=== PATIENT | female | born 1965 | race Caucasian/White ===

== ENCOUNTER → 2017-07-30 13:48 | Outpatient (CLI) | payer OTHER, SELFPAY ==
[2017-07-30 17:42] LABS: Chlamydia Trachomatis by PCR Negative (Negative); Neisserai gonorrhoeae by PCR Negative (Negative); Probe Check PASS; Sample Adequacy Control PASS; Specimen Processing Control PASS
== END ==
PROVIDERS: Family Provider Family Medicine; PCP Family Medicine; Visit Provider Obstetrics & Gynecology
DX: N39.0 Urinary tract infection, site not specified (principal); Z11.3 Encounter for screening for infections with a predominantly sexual mode of transmission
CPT/HCPCS: 87086; 87088; 87186; 87491; 87591

== ENCOUNTER 2017-08-19 12:05 | Observation (INO) | payer OTHER, SELFPAY ==
[2017-08-13 10:48] LABS: Hematocrit 41.5 % (37-47); Hemoglobin 14.1 g/dl (12.0-15.0); Mean Corpuscular Hgb 33.9 pg (27.0-32.0); Mean Corpuscular Volume 99.8 fL (81-99); Mean Platelet Vol. 10.9 fl (6.2-12.0); Platelet Count 173 K/mm3 (150-450); RBC Distribution Width CV 12.6 % (11.6-14.6); RBC Distribution Width SD 45.1 fl (35.1-43.9); Red Blood Count 4.16 M/mm3 (4.2-5.4); White Blood Count 6.5 K/mm3 (4.4-11.0)
[2017-08-13 10:49] LABS: Scan Indicated on CBC? Y/N NO
[2017-08-13 10:55] LABS: International Normalized Ratio 0.9; Prothrombin Time (Protime)PT. 11.4 SECONDS (11.7-14.9)
[2017-08-13 10:56] LABS: Partial Thromboplast Time 29.1 Seconds (24.1-36.2)
[2017-08-13 11:23] LABS: Pregnancy, Serum, hCG Quali. NEGATIVE Negative (0-9 Nonpreg)
[2017-08-19] VITALS (12 sets, daily range): BP systolic 112–144; BP diastolic 60–89; PULSE 67–92; RESP 16–18; TEMP 36.1–37.1; O2SAT 95–99; BMI 26.0; BMI 26.1
--- NOTE | 2017-08-19 | HYST_PTH ---
PATIENT: CEDRIC PEREZ LOC: MS3 U#:[id number] AGE/SX: 52/F ROOM: [facility] [place] RE08/19/[address]: Dr. Dc Kwon MD : [id number] BED: 1 DIS: 08/20/2017 SPEC #: [id number] RECD: 08/19/17 13:42 STATUS: LAMONT REAime #: [id number] JUAN: 08/19/17 00:[address]: Dc Kwon DEPT: SURGICAL PATHOLOGY RECD BY: Sesar Stewart ENTERED: 08/19/17 13:43 SP TYPE: HYSTERECT OTHR DR: Dr. David Connolly MD Tissues: Uterus, NOS Procedures: Surgery Specimen Level V HEADER OPERATION: Laparoscopic assisted vaginal hysterectomy, bilateral salpingectomy PRE-OP DIAGNOSIS: Menorrhagia with dysmenorrhea TISSUE SUBMITTED: Uterus, bilateral fallopian tubes MICROSCOPIC DIAGNOSIS Uterus, bilateral fallopian tubes and ovaries, vaginal hysterectomy and bilateral salpingo-oophorectomy: Cervix ? mild chronic inflammation and squamous metaplasia. Endometrium ? proliferative endometrium. Myometrium ? intramural leiomyoma. - Focal adenomyosis. See comment. Bilateral fallopian tubes - no pathologic diagnosis. Right ovary ? physiologic follicular cyst. Left ovary - no pathologic diagnosis. SJ:rg 08/20/17 COMMENT One of the intramural nodule is consistent with adenomyoma. MICROSCOPIC DESCRIPTION Slides are reviewed. GROSS DESCRIPTION Received in fixative is one container labeled with the patient's name and designated uterus. The specimen consists of a uterus with attached cervix and attached right and left fallopian tubes and ovaries. The uterus with cervix measures 8.5 x 6 x 4.5 cm and weighs 100 gm. The ectocervix is unremarkable. The cervical os is [place] in contour. The endocervical canal measures 3 cm in length and is grossly unremarkable. The elongated endometrial cavity measures 4 x 2 cm. The endometrium measures 0.1 cm in thickness. The endometrial cavity contains chocolate brown material. The myometrium measures 1.8 cm in thickness and contains two rubbery nodules ranging in size from 1.5 to 2.2 cm. The nodules and cut surfaces display a whorled appearance without areas of cyst formation or necrosis. The right ovary is pink-harrell and has a crinkled external surface and measures 3.4 x 2 x 1 cm. Serial sections reveal a blood filled cyst measuring 1.4 cm. The adjacent fallopian tube measures 3 cm in length and 0.5 cm in average diameter. No tubo-ovarian adhesions are seen. The left ovary is similar in appearance to the right ovary and measures 3.6 x 2 x 1.3 cm. Serial sections do not reveal mass lesions. The left fallopian tube is similar in appearance to the right tube and measures 3 x 0.5 cm. No tubo-ovarian adhesions are seen. Rescue Worker sections are submitted as follows: 1 - anterior cervix, 2 - posterior cervix, 3 & 4 - anterior uterine wall, 5 & 6 - posterior uterine wall, 7 ? myometrial masses, 8 ? right fallopian tube and ovary, 9 ? left fallopian tube and ovary. / AM:carlos 08/19/17 TC:5 CPT: 76471
[2017-08-19 07:05] LABS: Internal QC Validated? YES +Cl - CLEAR BKGD; Pregnancy, Urine Negative Negative
[2017-08-19] MEDS: Vasopressin 20 UNITS/ML Vial (08:45)
--- NOTE | 2017-08-19 09:16 | OP.PCM_ITS ---
Report of Operation Date of Procedure: 08/19/17 Pre-Operative Diagnosis: Menorrhagia, dysmenorrhea Post-Operative Diagnosis: Same Surgery/Procedure Performed:: LAVH/BSO Description of Surgical Findings:: Uterus globally enlarged. Both fallopian tubes had been previous ligated. Ovaries normal bilaterally. Some scarring present between bladder and lower uterine segment and anterior cervix. Normal appearing liver and stomach. cash surrender calculator: Stephanie Joel Type of Anesthesia:: General Anesthesiologist: Raul Goodwin Specimen's removed: Uterus, cervix, right and left ovaries and fallopian tubes Drains: champion Estimated Blood Loss (mL): 100cc Fluids Replaced: 1500cc Description of Procedure: Ayla was taken to the OR with IV running. She was given two grams of Cefotetan IV as surgical prophylaxis. SCDs were in place throughout the case and into recovery. General anesthesia was introduced without complication. She was then prepped and draped in the dorsal lithotomy position. A uterine manipulator was placed. A champion catheter was placed. Attention was then directed to the abdomen where a 5 mm verical incision was made in the lower base of the umbilicus. The underlying subcutaneous tissue was dissected down to the level of fascia using blunt dissection with a Phoebe clamp. The abdominal wall was then elevated and a Vereass needle placed in the the abdominal cavity. The abdomen was then inflated to 12 Torr with CO2 gas. The Veress needle was removed and replaced with a 5mm trocar and sleave. A survey of the abdomen and pelvis was performed with findings as noted above. Two lateral side ports were then placed lateral to the inferior epigastric vessels about 3 cm below the level of the umbilicus. Hemostasis was excellent after port site placement. Attention was first directed to the left side of the pelvis where the ovary was grasped and elevated. The left infindibulopelvidc ligament was identified and cauterized then cut with the Ligasure device. The Left mesoovarian tissue was then dissected close to ovary from the ovary to the cornua of the uterus. The left broad ligament was then dissected from the cornua to the cervicouterine junction close the the uterus. The anterior and posterior leaves were then . The anterior leave was bluntly dissected off the anterior surface of the cervix. The cervicovesico peritoneum was then cut from left to right thus creating a bladder flap. The left uterine artery was then clamped, cauterized and cut. The left paracervical tissue was then dissected close to the cervix down to the level of the uterosacral ligaments. In a similar fashion the right ovary, broad ligament were dissected down tot he cervicouterine junction. Again the right uterine artery was identified, cauterized and cut. The right paracervical tissue was then dissected close to the cervix the the level of the right suterosacral ligament. Attention was then directed to the vagina where a weighted speculum was placed. The uterine manipulator was removed and the cervix grasped with two single toothed tenacula to be used for traction. The cervicovaginal epithelium was then injected superficially with a dilute Pitressin solution. Using the Bovie cautery the cervicovaginal epithelium was dissected in a circumfrential fashion. The vaginal epithelium was then pushed superiorly. The vesicovaginal peritoneum was then identified and entered sharply. The posterior rectovaginal peritoneum was then identified and entered sharply. A long weighted speculum was placed through the posterior defect. The uterosacral ligaments were then grasped with Yolande clamps, cut, and suture ligated. These ties were held for incorporation into the lateral vaginal cuff angles. The remaining paracervical tissue was clamped close to the cervix on each side, cut and suture ligated. With all attachments of the specimen removed the specimen was removed en bulk. The vaginal cuff angles were then suture ligated with 0-Vicryl sutures and incorporated into these sutures were the previously held uterosacral ligament ties. The vagina was then closed with a series of figure of eight sutures of 0- vicryl. Attention was then directed back to the abdomen which was reinflated. A survey of the pelvic pedicle and vaginal cuff sites found them to be hemostatic. The port sites were then removed and gas evacuated from the abdomen. The skin incisions were closed with 4-0 Monocryl sutures. The incision sites were injected with 0.25% Marcaine. Sponge, lap, and needle counts were correct. SHe was reversed from anesthesia without complication and taken to the recovery room in stable condition. Grafts/Implants Used: none - Complications none - Admit VTE Documentation VTE Present on Admission: No VTE Mechan Device Prophylaxis: SCD's VTE Pharm Prophylaxis ordered?: Yes
[2017-08-19] MEDS: Bupivacaine 0.25% 30 ML Vial (10:40)
[2017-08-19] MEDS: Ketorolac 30 MG/ML Syringe IV ×2 (14:17→19:46)
[2017-08-19] MEDS: Ondansetron 4 MG/2 ML Vial IV (14:17)
[2017-08-19] MEDS: Estrogens,Conj. 1.25 MG Tablet PO (14:18)
[2017-08-19] MEDS: Lactated Ringers 1,000 ML 125 ML IV (14:19)
[2017-08-19] MEDS: Acetaminophen 500 MG Tablet 1000 MG PO ×2 (15:00→21:51)
[2017-08-19] MEDS: Enoxaparin 40 MG/0.4 ML Syringe SC (16:52)
[2017-08-19] MEDS: Cefazolin 1 GM/50 ML BAG IV (16:52)
[2017-08-19] MEDS: HYDROmorphone 1 MG/ML Syringe IV (17:01)
[2017-08-19] MEDS: oxyCODONE 5 MG Tablet PO (21:52)
[2017-08-20] MEDS: Ketorolac 30 MG/ML Syringe IV ×2 (00:56→06:33)
[2017-08-20] MEDS: Cefazolin 1 GM/50 ML BAG IV (00:56)
[2017-08-20 01:52] VITALS: BP 111/59; PULSE 79; RESP 16; TEMP 36.9; O2SAT 95
[2017-08-20] MEDS: oxyCODONE 5 MG Tablet PO ×2 (02:06→08:05)
[2017-08-20] MEDS: Lactated Ringers 1,000 ML 125 ML IV (02:08)
[2017-08-20] MEDS: Acetaminophen 500 MG Tablet 1000 MG PO (05:21)
[2017-08-20 05:55] LABS: Hematocrit 33.5 % (37-47); Hemoglobin 11.1 g/dl (12.0-15.0); Mean Corp Hgb Conc 33.1 g/gl (32-36); Mean Corpuscular Hgb 33.4 pg (27.0-32.0); Mean Corpuscular Volume 100.9 fL (81-99); Mean Platelet Vol. 11.2 fl (6.2-12.0); Platelet Count 163 K/mm3 (150-450); RBC Distribution Width CV 12.7 % (11.6-14.6); RBC Distribution Width SD 45.9 fl (35.1-43.9); Red Blood Count 3.32 M/mm3 (4.2-5.4); White Blood Count 8.5 K/mm3 (4.4-11.0)
[2017-08-20 06:08] LABS: Scan Indicated on CBC? Y/N NO
--- NOTE | 2017-08-20 06:43 | DCINST_ITS ---
Discharge Diet: No Restrictions Discharge Activity: Return to Normal Activity, May Not Drive, May not drive while taking narcotic pain medications., May Shower Return to work on:: 09/28/17 May shower in (days): 0 May resume sexual activity in: 6 weeks Call your doctor if your incision/area has: Sudden Increased Bleeding, Increased Pain/ Swelling, Increased Redness, Foul Smelling Discharge, Swelling at the incision site Call your doctor if you observe: Fever of 101 or Higher, Inability to urinate, Inability to have a bowel movement, Using more than one pad per hour, Chest pain , Calf discomfort, Uncontrolled pain Remove Dressing in (days):: 1 Cleanse incision/area with: Soap & Water Allergies/Adverse Reactions: Allergies No Known Allergies Allergy (Verified 08/12/17 10:15) Medications to take at Discharge Bupropion HCl [Bupropion Xl] 150 mg PO DAILY 03/11/17 Trazodone HCl 100 mg PO DAILY 03/11/17 Cholecalciferol (Vitamin D3) [Vitamin D3] 2,000 unit PO QHS 08/12/17 Valerian Root 1,500 mg PO QHS 08/12/17 Estrogens, Conjugated [Premarin] 1.25 mg PO DAILY #30 tab 08/20/17 Ibuprofen [Motrin] 800 mg PO TID PRN PRN #30 tab 08/20/17 Oxycodone [Oxyir] 5 - 10 mg PO Q4H PRN PRN 7 Days #28 tab 08/20/17 The following prescriptions were given: Oxycodone [Oxyir] 5 - 10 mg PO Q4H PRN PRN 7 Days #28 tab PRN Reason: Mod-Severe Pain (4-10/10) Estrogens, Conjugated [Premarin] 1.25 mg PO DAILY #30 tab Ibuprofen [Motrin] 800 mg PO TID PRN PRN #30 tab PRN Reason: pain or cramping Primary Care Physician: David Connolly [Primary Care Provider] - Please Follow Up With: Dc Kwon MD When: one week Proposed Discharge Date: 08/20/17
--- NOTE | 2017-08-20 07:02 | PCM.PN.OB ---
Subjective: Pain reasonably controlled. Tolerating PO. No N/V. Thompson just removed. Objective: Afeb VSS. urine output adequate. Hgb appropriate po day 1. - Physical Exam General: Alert, Oriented x3, Cooperative, No apparent distress Lungs: Clear to auscultation, Normal air movement Cardiovascular: Regular rate, Regular Rhythm Abdomen: Soft, Non Tender, Non-Distended, - - Incision dressings dry no erythema Extremities: No edema, No Calf Tenderness Skin: No rashes Neurological: Neuro grossly intact Psych/Mental Status: Normal Affect Vital Signs Temp Pulse Resp BP Pulse Ox 98.4 F 79 16 111/59 L 95 08/20/17 01:52 08/20/17 01:52 08/20/17 01:52 08/20/17 01:52 08/20/17 01:52 Oxygen Flow Rate 2 Oxygen Delivery Method Room Air Weight: 152 lb 1.903 oz Body Mass Index (BMI) 26.1 Intake and Output for Last 24 Hours 08/18/18 08/19/17 08/20/17 23:59 23:59 23:59 Intake Total 2968 / 2968 1033 / 1033 Output Total 840 / 840 700 / 700 Balance 2128 / 2128 333 / 333 Laboratory Tests Past 24 Hrs 08/19/17 08/20/17 06:45 05:08 WBC 8.5 RBC 3.32 L Hgb 11.1 L Hct 33.5 L MCV 100.9 H MCH 33.4 H MCHC 33.1 RDW 12.7 RDW Differential 45.9 H Plt Count 163 MPV 11.2 Urine Test Negative Assessment/Plan Doing well on POD#1. Cleared for discharge home today once voids. Home going instructions and warnings given.
--- NOTE | 2017-08-20 07:07 | DS.PCM_ITS ---
Discharge Date and Diagnosis Date of Admission: 08/19/17 Date of Discharge: 08/20/17 - Primary Discharge Diagnosis S/P LAVH/BSO - Secondary Discharge Diagnosis Chronic Problems Menorrhagia, premenopausal (Chronic) Hospital Course and Treatment Operations: - - LAVH/BSO Summary of Care Provided: The patient is a 52 year old F [admitted for scheduled LAVH/BSO. This was performed without complication. Post operative course unremarkable. Discharged home on POD#1.] Discharge Diet: No Restrictions Discharge Activity: Return to Normal Activity, May Not Drive, May not drive while taking narcotic pain medications., May Shower Return to work on:: 09/28/17 May shower in (days): 0 May resume sexual activity in: 6 weeks Call your doctor if your incision/area has: Sudden Increased Bleeding, Increased Pain/ Swelling, Increased Redness, Foul Smelling Discharge, Swelling at the incision site Call your doctor if you observe: Fever of 101 or Higher, Inability to urinate, Inability to have a bowel movement, Using more than one pad per hour, Chest pain , Calf discomfort, Uncontrolled pain Remove Dressing in (days):: 1 Cleanse incision/area with: Soap & Water Home Medications: Medications to take at Discharge Bupropion HCl [Bupropion Xl] 150 mg PO DAILY 03/11/17 Trazodone HCl 100 mg PO DAILY 03/11/17 Cholecalciferol (Vitamin D3) [Vitamin D3] 2,000 unit PO QHS 08/12/17 Valerian Root 1,500 mg PO QHS 08/12/17 Estrogens, Conjugated [Premarin] 1.25 mg PO DAILY #30 tab 08/20/17 Ibuprofen [Motrin] 800 mg PO TID PRN PRN #30 tab 08/20/17 Oxycodone [Oxyir] 5 - 10 mg PO Q4H PRN PRN 7 Days #28 tab 08/20/17 Following Prescrptions Were Given to Patient: Oxycodone [Oxyir] 5 - 10 mg PO Q4H PRN PRN 7 Days #28 tab PRN Reason: Mod-Severe Pain (4-10/10) Estrogens, Conjugated [Premarin] 1.25 mg PO DAILY #30 tab Ibuprofen [Motrin] 800 mg PO TID PRN PRN #30 tab PRN Reason: pain or cramping Primary Care Physician: David Connolly [Primary Care Provider] - Please Follow Up With: Dc Kwon MD When: one week Disposition: Home Minutes spent on discharge:: 15 Patient Condition:: Good Meaningful Use Info Meaningful Use Diagnoses (Choose all that apply): None applicable
[2017-08-20 07:59] VITALS: BP 108/61; PULSE 71; RESP 16; TEMP 37.2; O2SAT 97
[2017-08-20 10:17] VITALS: BP 98/57; PULSE 63; RESP 16; TEMP 37.2; O2SAT 96
[2017-08-20] MEDS: Estrogens,Conj. 1.25 MG Tablet PO (10:21)
== END 2017-08-20 14:04 | disposition home or self-care (01) ==
LOC: SDC 13:00
PROVIDERS: Anesthesiology; Admitting Provider Obstetrics & Gynecology; Family Provider Family Medicine; PCP Family Medicine; Visit Provider Obstetrics & Gynecology
PROC: 0UT9FZZ Resection of Uterus, Via Natural or Artificial Opening With Percutaneous Endoscopic Assistance (ICD-10-PCS; CPT 58552; principal; 2017-08-19 08:25)
DX: N92.1 Excessive and frequent menstruation with irregular cycle (principal); N80.0 Endometriosis of uterus; D25.1 Intramural leiomyoma of uterus; N83.01 Follicular cyst of right ovary; N87.0 Mild cervical dysplasia; Z23 Encounter for immunization; Z87.891 Personal history of nicotine dependence
CPT/HCPCS: 58552; 36415; 81025; 84703; 85027; 85610; 85730; 86850; 86900; 88307; 96361; 96365; 96366; 96372; 96375; 96376; 99218; J7120; 90686; G0378; G0379; J2405

== ENCOUNTER → 2017-10-27 14:15 | Outpatient (CLI) | payer OTHER, SELFPAY ==
--- NOTE | 2017-10-27 14:17 | BI_ITS ---
MAMMOGRAPHY - BILATERAL SCREENING 3-D YONI SYNTHESIS REASON FOR EXAM: Female, 52 years old. Bilateral Screening 3-D tomosynthesis PERTINENT HISTORY: No significant family history. TECHNIQUE: 2-D mammograms and 3-D Yoni synthesis of the breast (s) were performed. CAD was performed. COMPARISON: March 05, 2017 FINDINGS: The breast composition is composed of scattered fibroglandular density. Breast implants appear intact. Mild capsular fibrosis. Scattered benign calcifications are seen. No dense spiculated masses or suspicious microcalcifications are identified. No architectural distortion is identified. There is no skin thickening or retraction. There has been no significant change since the prior study. BI/SCREENING MAMM (CAD), BILAT IMPRESSION: No mammographic signs of malignancy. Routine yearly mammograms recommended. ASSESSMENT CATEGORY: BIRADS Category 2: Benign. A letter regarding these results will be sent to the patient by the facility within 30 days. FOLLOW UP RECOMMENDATION: Yearly follow up mammogram recommended. (A) Approximately 10% of breast cancers are not detected by mammography. A normal mammogram should not delay biopsy of a clinically suspicious abnormality. Electronically Signed: Glenn Langston MD at 15:50 EDT , Service support ,
== END ==
PROVIDERS: Family Provider Family Medicine; PCP Family Medicine; Visit Provider Obstetrics & Gynecology
DX: Z12.31 Encounter for screening mammogram for malignant neoplasm of breast (principal)
CPT/HCPCS: 77063; 77067

== ENCOUNTER 2017-10-27 15:02 | Emergency (ER) | payer OTHER, SELFPAY ==
[2017-10-27 15:03] VITALS: BP 119/84; PULSE 81; PULSE 91; RESP 17; RESP 18; TEMP 36.8; O2SAT 94; BMI 26.9
--- NOTE | 2017-10-27 15:42 | ED.VISSUMM ---
- ER Visit Summary Date of Service: 10/27/17 Chief Complaint: Abscess History of Present Illness: The patient is a 52 F with a recurrent cyst on her tailbone. This lesion started 2 or 3 days ago. She states she thought was starting to drain but is still very painful. She denies fever or chills. She has had surgery previously for pilonidal cyst in an area more superior to the current lesion. She was seen by a surgeon in [place] at that time. Physical Examination: Vital signs are unremarkable. Patient is in no acute distress. Heart is regular rate and rhythm. lung sounds are clear. Skin examination significant for 1 x 3 cm abscess over the lower sacrum. There is a small amount of spontaneous drainage. No surrounding cellulitis. Test Results: [] Emergency Department Course and Treatment: Patient is consented for I&D. 1 cc 1% lidocaine was infused locally. Incision is made with a #11 blade. There is return of thick, foul-smelling pus. Wound is thoroughly irrigated. Patient was placed on clindamycin. She is referred to Dr. Ibarra, on-call for no doc surgery here locally for follow-up. Treatment Plan: [] Disposition: Discharge Impression: Pilonidal cyst status post I&D This note was generated with [employer] dictation software. It may contain incorrect words, spelling, and punctuation that were not noted in review of the chart prior to signing ED Disposition - Plan for ED Patient: Disposition: Home or Assisted Living Chief Complaint: Abscess Instructions: ED Cyst Pilonidal Infected IandD Prescriptions: Clindamycin [Cleocin] 300 mg PO 4X/DAY #80 capsule Referrals: David Connolly [Primary Care Provider] - Tia Ibarra MD [STAFF PHYSICIAN] - 5-7 Days
--- NOTE | 2017-10-27 15:45 | ED.DCSUM_ITS ---
- ER Visit Summary Date of Service: 10/27/17 Chief Complaint: Abscess History of Present Illness: The patient is a 52 F with a recurrent cyst on her tailbone. This lesion started 2 or 3 days ago. She states she thought was starting to drain but is still very painful. She denies fever or chills. She has had surgery previously for pilonidal cyst in an area more superior to the current lesion. She was seen by a surgeon in [place] at that time. Physical Examination: Vital signs are unremarkable. Patient is in no acute distress. Heart is regular rate and rhythm. lung sounds are clear. Skin examination significant for 1 x 3 cm abscess over the lower sacrum. There is a small amount of spontaneous drainage. No surrounding cellulitis. Test Results: [] Emergency Department Course and Treatment: Patient is consented for I&D. 1 cc 1 % lidocaine was infused locally. Incision is made with a #11 blade. There is return of thick, foul-smelling pus. Wound is thoroughly irrigated. Patient was placed on clindamycin. She is referred to Dr. Ibarra, on-call for no doc surgery here locally for follow-up. Treatment Plan: [] Disposition: Discharge Impression: Pilonidal cyst status post I&D This note was generated with [employer] dictation software. It may contain incorrect words, spelling, and punctuation that were not noted in review of the chart prior to signing ED Disposition - Plan for ED Patient: Disposition: Home or Assisted Living Chief Complaint: Abscess Instructions: ED Cyst Pilonidal Infected IandD Prescriptions: Clindamycin [Cleocin] 300 mg PO 4X/DAY #80 capsule Referrals: David Connolly [Primary Care Provider] - Tia Ibarra MD [STAFF PHYSICIAN] - 5-7 Days
== END 2017-10-27 15:54 | disposition home or self-care (01) ==
PROVIDERS: Emergency Provider Emergency Medicine; Family Provider Family Medicine; PCP Family Medicine
DX: L05.91 Pilonidal cyst without abscess (principal); Z79.899 Other long term (current) drug therapy; Z87.891 Personal history of nicotine dependence
CPT/HCPCS: 10080; 99282

== ENCOUNTER → 2018-11-08 11:38 | Outpatient (CLI) | payer OTHER, SELFPAY ==
--- NOTE | 2018-11-08 11:46 | BI_ITS ---
MAMMOGRAPHY - BILATERAL SCREENING 3-D TOMOSYNTHESIS REASON FOR EXAM: Female, 53 years old. Bilateral Screening 3-D tomosynthesis PERTINENT HISTORY: Mother diagnosed with breast cancer at age 55.. TECHNIQUE: 2-D mammograms and 3-D Tomosynthesis of the breast (s) were performed. CAD was performed. COMPARISON: October 27, 2017. FINDINGS: The breast composition is composed of scattered fibroglandular density. Scattered benign calcifications are seen. No dense spiculated masses or suspicious microcalcifications are identified. No architectural distortion is identified. There is no skin thickening or retraction. There has been no significant change since the prior study. BI/SCREENING MAMM (CAD), BILAT IMPRESSION: No mammographic signs of malignancy. Routine yearly mammograms recommended. ASSESSMENT CATEGORY: BIRADS Category 2: Benign. A letter regarding these results will be sent to the patient by the facility within 30 days. FOLLOW UP RECOMMENDATION: Yearly follow up mammogram recommended. (A) Approximately 10% of breast cancers are not detected by mammography. A normal mammogram should not delay biopsy of a clinically suspicious abnormality. Electronically Signed: Glenn Langston MD at 13:36 EDT , Service support ,
== END ==
PROVIDERS: Family Provider Family Medicine; PCP Family Medicine; Referring Provider Obstetrics & Gynecology; Visit Provider Obstetrics & Gynecology
DX: Z12.31 Encounter for screening mammogram for malignant neoplasm of breast (principal)
CPT/HCPCS: 77063; 77067

== ENCOUNTER 2019-02-22 09:49 | Emergency (ER) | payer OTHER, SELFPAY ==
[2019-02-22 09:50] VITALS: BP 187/91; PULSE 114; RESP 16; TEMP 36.3; O2SAT 98; BMI 25.2
--- NOTE | 2019-02-22 10:00 | RAD_ITS ---
STUDY: X-RAY - UNILATERAL RIBS ( LEFT ) WITH CHEST REASON FOR EXAM: Female, 54 years old. Trauma 3 days ago. TECHNIQUE - RIBS: 4 view(s) of the ribs. TECHNIQUE - CHEST: Single PA view of the chest. COMPARISON: None. FINDINGS - RIBS: Normal visualized ribs without a demonstrated fracture. FINDINGS - CHEST: The lungs are clear and expanded. There is no demonstrated pleural abnormality. Normal size heart. Normal mediastinum and leonard. Normal visualized pulmonary arteries. Normal visualized aortic arch and descending thoracic aorta. Normal visualized thoracic spine. Normal visualized ribs, clavicles, and shoulders. There is no demonstrated abnormality of the visualized soft tissue structures of the upper abdomen. RAD/Ribs Uni Min 3V w/PA Chest IMPRESSION: RIBS: Normal x-ray examination of the ribs. CHEST: Normal x-ray examination of the chest. Electronically Signed: Frankchiquita Gimenez, at 11:12 EDT Tel , Service support ,
--- NOTE | 2019-02-22 10:01 | ED.VISSUMM ---
- ER Visit Summary Date of Service: 02/22/19 Chief Complaint: Fall History of Present Illness: The patient is a 54 F who presents with left lower rib pain that began 4 days ago after a fall. Patient states she fell onto the railing of a pontoon boat. Patient states the pain has been getting progressively worse. Patient describes the pain as stabbing. Patient states the pain is over the left lower chest and radiates into her back. Patient states the pain is worse with movement and with deep breathing. Patient admits to a low-grade fever of 100. Patient denies any shortness of breath. Patient denies any hip pain or other injuries. Physical Examination: Vital signs are stable except for a mild tachycardia of 114 and a slightly elevated blood pressure 187/91. Patient is afebrile. Patient is in no acute distress. Oral mucosa is pink and moist. Neck is supple. Trachea is midline. There is no JVD noted. Heart was regular and tachycardic. Lungs are clear and equal bilaterally. Respiratory effort was limited secondary to pain. Abdomen is soft. Bowel sounds are normal. There is no tenderness. Cranial nerves II through XII are intact. There are no focal motor or sensory deficits noted. Test Results: X-rays of the left ribs were obtained. There is no acute fracture or pneumothorax. These were interpreted by the radiologist and myself. Emergency Department Course and Treatment: Patient was given a dose of [place] here. Patient was instructed to use ice to the area. Patient was instructed to take 10-15 deep breaths every hour while awake to prevent atelectasis and pneumonia. Patient was instructed to continue Tylenol and ibuprofen as needed for pain. Patient understood and was agreeable with the plan patient was instructed to follow-up with her primary care physician in 7 to 10 days. All questions were answered. Disposition: Discharge home Impression: Left chest contusion This note was generated with [employer] dictation software. It may contain incorrect words, spelling, and punctuation that were not noted in review of the chart prior to signing ED Disposition - Plan for ED Patient: Disposition: Home or Assisted Living Diagnosis: Contusion of left chest wall Instructions: Chest Wall Contusion Referrals: David Connolly MD [Primary Care Provider] - 5-7 Days
[2019-02-22] MEDS: HYDROcodone Bitartrate/Apap 5/325 Tablet PO (10:31)
[2019-02-22 11:47] VITALS: BP 160/68; PULSE 97; RESP 17; O2SAT 99
== END 2019-02-22 11:47 | disposition home or self-care (01) ==
PROVIDERS: Emergency Provider Emergency Medicine; Family Provider Family Medicine; PCP Family Medicine
DX: S20.212A Contusion of left front wall of thorax, initial encounter (principal); W20.8XXA Other cause of strike by thrown, projected or falling object, initial encounter; Y93.9 Activity, unspecified; Y92.814 Boat as the place of occurrence of the external cause; Y99.9 Unspecified external cause status; R03.0 Elevated blood-pressure reading, without diagnosis of hypertension; R50.9 Fever, unspecified; R00.0 Tachycardia, unspecified; J02.9 Acute pharyngitis, unspecified; R11.0 Nausea; Z72.0 Tobacco use; Z79.899 Other long term (current) drug therapy
CPT/HCPCS: 71101; 99283

== ENCOUNTER 2019-03-07 13:33 | Emergency (ER) | payer OTHER, SELFPAY ==
[2019-03-07 13:34] VITALS: BP 147/114; PULSE 107; RESP 18; TEMP 36.7; O2SAT 94; BMI 25.9
--- NOTE | 2019-03-07 13:39 | EKG12_ITS ---
Test Reason : CP Blood Pressure : / mmHG Vent. Rate : 101 BPM Atrial Rate : 101 BPM P-R Int : 146 ms QRS Dur : 076 ms QT Int : 346 ms P-R-T Axes : 069 097 059 degrees QTc Int : 448 ms Sinus tachycardia Possible Left atrial enlargement Rightward axis Borderline ECG Confirmed by DWIGHT YOUNG, TICO ([id number]), restaurant expeditor LETHA LEO ([id number]) on 03/09/2019 1:27:24 PM Referred By: KENNETH Confirmed By:TICO QUINTANILLA MD
--- NOTE | 2019-03-07 13:39 | RAD_ITS ---
STUDY: X-RAY CHEST REASON FOR EXAM: Female, 54 years old. Left rib and back pain. TECHNIQUE: Single frontal view of the chest. COMPARISON: February 22, 2019 FINDINGS: Stable mild hyperexpansion. There is no demonstrated pleural abnormality. Normal size heart. Normal mediastinum and leonard. Normal visualized pulmonary arteries. Normal visualized aortic arch and descending thoracic aorta. Normal visualized thoracic spine. Normal visualized ribs, clavicles, and shoulders. There is no demonstrated abnormality of the visualized soft tissue structures of the upper abdomen. RAD/Chest 1 View (Portable) IMPRESSION: Stable hyperexpansion with no acute finding. Electronically Signed: Carlos Clark MD at 14:58 EDT , Service support ,
[2019-03-07 14:09] LABS: Absolute Lymphocyte Count 2.64 X10^3/uL (0.83-4.51); Absolute Neutrophil Count 3.5 X10^3/uL (2.0-7.7); Basophil% 1.4 % (0-1); Eosinophil# 0.25 X10^3/uL; Eosinophils% 3.6 % (0-5); Hematocrit 43.6 % (37-47); Hemoglobin 15.2 g/dL (12.0-15.0); Lymphocyte # 2.64 X10^3/ul (4.0); Lymphocyte % 37.8 % (19-41); Mean Corp Hgb Conc 34.9 g/dL (32-36); Mean Corpuscular Hgb 34.5 pg (27.0-32.0); Mean Corpuscular Volume 99.1 fL (81-99); Mean Platelet Vol. 10.4 fl (6.2-12.0); Monocyte# 0.51 X10^3/uL; Monocyte% 7.3 % (0-10); NRBC Flagged by Analyzer 0 % (0-5); Neutrophil # 3.47 X10^3/uL (2.7-7.7); Neutrophil % 49.6 % (47-70); Platelet Count 173 K/mm3 (150-450); RBC Distribution Width CV 12.7 % (11.6-14.6); RBC Distribution Width SD 46.5 fl (35.1-43.9)
[2019-03-07 14:28] LABS: Anion Gap 6 (5-15); BUN 22 mg/dL (7-18); BUN/Creat Ratio 27.8 RATIO (10-20); Calcium,Total 8.8 mg/dL (8.5-10.1); Chloride 108 mmol/L (98-107); Creatinine, Serum 0.79 mg/dL (0.55-1.02); EST Glomerular Filtration Rate 81 mL/min (>60); Est Glom Filt Rate - Afr Amer 98 mL/min (>60); Estimated Creatinine Clearance 71.93 ml/min; Glucose 98 mg/dL (74-106); Potassium 4.3 mmol/L (3.5-5.1); Sodium Level 141 mmol/L (136-145)
--- NOTE | 2019-03-07 15:18 | ED.VIS.GEN ---
History of Present Illness Chief Complaint: Chest Pain Detail of Chief Complaint: Chest wall pain Informant: Patient, Family Onset: Weeks Timing: Waxes and wanes Current Severity: Moderate - 3 weeks Maximum Severity: Moderate Associated Symptoms: Increased pain with deep breath or cough. Narrative: Patient presents with left sided rib pain for the past 3 weeks after sustaining a fall. She states she fell between her bed and nightstand, striking her left ribs. She states pain has been increasing. She is using Advil PM to help her sleep at night, but otherwise not taking anything for pain. She does report increased pain when attempting to take a deep breath or cough. Past Medical History - Allergies and Home Meds Allergies/Adverse Reactions: Allergies No Known Allergies Allergy (Verified 02/22/19 09:49) Primary Care Physician: David Connolly MD [Primary Care Provider] - Prior records reviewed: Yes Past Medical History: - - Reviewed Lives: Spouse/ Significant Other Smoking Status: Current some day smoker Alcohol: Occasional Review of Systems General: Denies: Chills, Fever Eyes: Denies: Visual changes - bilaterally ENT: Denies: Bilateral ear pain Cardiovascular: Reports: Chest pain Respiratory: Reports: Dyspnea Gastrointestinal: Denies: Abdominal pain, Nausea, Vomiting, Diarrhea Musculoskeletal: Reports: Back pain - Left posterior ribs. Denies: Neck pain Skin: Denies: Rash, Abrasions Neurological: Denies: Headache, Weakness, Parasthesia Hematologic: Denies: Easy bruising Physical Exam Vital Signs/Narrative: Vital Signs Temp Pulse Resp BP Pulse Ox 03/07/19 13:34 98.0 F 107 H 18 147/114 H 94 Inital Vital Signs reviewed: Yes General: Well nourished, Well developed Head: Normocephalic Eyes: Perrl, EOMI ENT: Moist mucous membranes Neck: Supple Cardiovascular: Regular rate, Regular rhythm Respiratory: No distress, CTA bilaterally, Chest tenderness - Reproducible chest wall tenderness around the lateral posterior left lower ribs. No crepitus. Abdomen: Soft, Nontender Back: Nontender - No midline thoracic or lumbar tenderness. Extremities: Nontender Skin: Normal color, No rash Neurological: Alert, Oriented x3, Normal Strength, Normal Sensation Psychological: Normal affect Diagnostic/Tx/Re-eval Impressions Chest X-Ray 03/07/19 13:39 IMPRESSION: Stable hyperexpansion with no acute finding. Electronically Signed: Carlos Clark MD at 14:58 EDT , Service support , 03/07/19 13:39 Chest 1 View (Portable) [RAD] Stat Laboratory Results 03/07/19 03/07/19 14:03 14:03 WBC 7.0 RBC 4.40 Hgb 15.2 H Hct 43.6 MCV 99.1 H MCH 34.5 H MCHC 34.9 RDW Std Deviation 46.5 H RDW Coeff of Adwoa 12.7 Plt Count 173 MPV 10.4 Immature Gran % (Auto) 0.300 Neut % (Auto) 49.6 Lymph % (Auto) 37.8 [place] % (Auto) 7.3 Eos % (Auto) 3.6 Baso % (Auto) 1.4 H Absolute Neuts (auto) 3.5 Absolute Lymphs (auto) 2.64 Nucleated RBC % 0 Sodium 141 Potassium 4.3 Chloride 108 H Carbon Dioxide 27.0 Anion Gap 6 BUN 22 H Creatinine 0.79 Estim Creat Clear Calc 71.93 Est GFR (MDRD) Af Amer 98 Est GFR (MDRD) Non-Af 81 BUN/Creatinine Ratio 27.8 H Glucose 98 Calcium 8.8 Troponin I < 0.015 - EKG Initial EKG Interpretation: Sinus Tachycardia - Sinus tach at 101 with no acute ischemia. - Medical Decision Making Cardiac work-up was initiated per nursing protocol. This is unremarkable. Test results are discussed with the patient. She has reproducible chest wall pain after a fall and striking that area. She will be given a prescription for naproxen with a few Percocet for breakthrough pain. We discussed the importance of deep breathing to help keep her lung healthy. Clinically patient has a rib contusion or fracture. ED Disposition - Plan for ED Patient: Disposition: Home or Assisted Living Diagnosis: Contusion of rib on left side Instructions: RIB: CONTUSION vs MINOR FRACTURE Prescriptions: Naproxen [Naprosyn] 500 mg PO BID PRN PRN #20 tablet PRN Reason: Pain Oxycodone HCl/Acetaminophen [Percocet 5/325] 1 tablet PO Q6H PRN PRN 5 Days #20 tablet PRN Reason: Pain Referrals: David Connolly MD [Primary Care Provider] - 1-2 Weeks
[2019-03-07] MEDS: oxyCODONE 5 MG Tablet PO (15:36)
[2019-03-07] MEDS: Naproxen 500 MG Tablet PO (15:36)
== END 2019-03-07 15:42 | disposition home or self-care (01) ==
PROVIDERS: Emergency Provider Emergency Medicine; Family Provider Family Medicine; PCP Family Medicine
DX: S20.212A Contusion of left front wall of thorax, initial encounter (principal); R00.0 Tachycardia, unspecified; W01.190A Fall on same level from slipping, tripping and stumbling with subsequent striking against furniture, initial encounter; Y93.9 Activity, unspecified; Y92.003 Bedroom of unspecified non-institutional (private) residence as the place of occurrence of the external cause; Y99.9 Unspecified external cause status; F17.200 Nicotine dependence, unspecified, uncomplicated
CPT/HCPCS: 71045; 80048; 84484; 85025; 93005; 99284; A4216

== ENCOUNTER → 2019-11-10 13:12 | Outpatient (CLI) | payer OTHER, SELFPAY ==
--- NOTE | 2019-11-10 13:15 | BI_ITS ---
MAMMOGRAPHY - BILATERAL SCREENING REASON FOR EXAM: Female, 54 years old. Routine annual screening examination. PERTINENT HISTORY: Mother with breast cancer. History of bilateral breast implants. TECHNIQUE: Digital bilateral breast yoni (3D mammographic acquisition) in the CC and MLO projections. 2-D mediolateral oblique (MLO) and craniocaudad (CC) views of both breasts were obtained. CAD: Full Field Digital Mammography with Computer Added Detection was performed. COMPARISON: Comparison is made with prior examination dated November 08, 2018 and October 28, 2007. FINDINGS: Breast Composition: The breasts are heterogeneously dense, which may obscure small masses. There are no dominant masses or suspicious calcifications. Stable appearance of the bilateral breast implants. No other significant abnormalities are identified. There has been no significant change since the prior study. BI/SCREEN MAMM (CAD) W/YONI BILAT IMPRESSION: Stable bilateral screening mammogram. Yearly follow-up mammogram recommended. (A) ASSESSMENT CATEGORY: BIRADS Category 2: Benign. A letter regarding these results will be sent to the patient by the facility within 30 days. Approximately 10% of breast cancers are not detected by mammography. A normal mammogram should not delay biopsy of a clinically suspicious abnormality. [id number] Electronically Signed: Jeramy Lobo, at 14:06 EDT , Service support ,
== END ==
PROVIDERS: PCP Family Medicine; Referring Provider Obstetrics & Gynecology; Visit Provider Obstetrics & Gynecology
DX: Z12.31 Encounter for screening mammogram for malignant neoplasm of breast (principal); Z80.3 Family history of malignant neoplasm of breast
CPT/HCPCS: 77063; 77067

== ENCOUNTER → 2021-04-29 12:13 | Outpatient (CLI) | payer OTHER, SELFPAY ==
--- NOTE | 2021-04-29 12:16 | BI_ITS ---
MAMMOGRAPHY - BILATERAL SCREENING REASON FOR EXAM: Female, 56 years old. Routine annual screening examination. PERTINENT HISTORY: Mother with breast cancer. Breast implants. TECHNIQUE: Digital bilateral breast yoni (3D mammographic acquisition) in the CC and MLO projections. 2-D mediolateral oblique (MLO) and craniocaudad (CC) views of both breasts were obtained. CAD: Full Field Digital Mammography with Computer Added Detection was performed. COMPARISON: Comparison is made with prior study of 11/10/2019 and 11/08/2018. FINDINGS: Breast Composition: The breasts are heterogeneously dense, which may obscure small masses. There are no dominant masses or suspicious calcifications. Stable appearance of the bilateral breast implants. No other significant abnormalities are identified. There has been no significant change since the prior study. BI/SCRN MAMM (CAD)W/YONI BILAT IMPRESSION: Stable bilateral screening mammogram. Yearly follow-up mammogram recommended. (A) ASSESSMENT CATEGORY: BIRADS Category 2: Benign. A letter regarding these results will be sent to the patient by the facility within 30 days. Approximately 10% of breast cancers are not detected by mammography. A normal mammogram should not delay biopsy of a clinically suspicious abnormality. [id number] Electronically Signed: Jeramy Lobo MD at 13:17 EDT , Service support ,
== END ==
PROVIDERS: PCP Family Medicine; Referring Provider Obstetrics & Gynecology; Visit Provider Obstetrics & Gynecology
DX: Z12.31 Encounter for screening mammogram for malignant neoplasm of breast (principal); Z80.3 Family history of malignant neoplasm of breast
CPT/HCPCS: 77063; 77067

== ENCOUNTER → 2023-05-11 | Outpatient (CLI) | payer OTHER, SELFPAY ==
--- NOTE | 2023-05-11 11:42 | BI_ITS ---
MAMMOGRAPHY - BILATERAL SCREENING REASON FOR EXAM: Female, 58 years old. Routine annual screening examination. PERTINENT HISTORY: Mother with breast cancer. History of prior breast implant removal and breast lift. TECHNIQUE: Digital bilateral breast yoni (3D mammographic acquisition) in the CC and MLO projections. 2-D mediolateral oblique (MLO) and craniocaudad (CC) views of both breasts were obtained. CAD: Full Field Digital Mammography with Computer Added Detection was performed. COMPARISON: Comparison is made with prior study April 29, 2021. FINDINGS: Breast Composition: The breasts are heterogeneously dense, which may obscure small masses. There are no dominant masses or suspicious calcifications. The previously seen bilateral breast implants have been removed as compared to prior study. No other significant abnormalities are identified. BI/SCRN MAMM (CAD)W/YONI BILAT IMPRESSION: Stable bilateral screening mammogram. Yearly follow-up mammogram recommended. (A) ASSESSMENT CATEGORY: BIRADS Category 2: Benign. A letter regarding these results will be sent to the patient by the facility within 30 days. Approximately 10% of breast cancers are not detected by mammography. A normal mammogram should not delay biopsy of a clinically suspicious abnormality. [id number] Electronically Signed: Jeramy Lobo MD at 12:56 EST ,
== END | disposition home or self-care (01) ==
LOC: OPBI 11:41
PROVIDERS: PCP Family Medicine; Referring Provider Physician Assistant; Visit Provider Physician Assistant
DX: Z12.31 Encounter for screening mammogram for malignant neoplasm of breast (principal)
CPT/HCPCS: 77063; 77067

== ENCOUNTER → 2024-07-13 | Outpatient (CLI) | payer OTHER, SELFPAY ==
--- NOTE | 2024-07-13 12:48 | BI_ITS ---
MAMMOGRAPHY - BILATERAL SCREENING REASON FOR EXAM: Female, 59 years old. Routine annual screening examination. PERTINENT HISTORY: Mother with breast cancer. TECHNIQUE: Digital bilateral breast yoni (3D mammographic acquisition) in the CC and MLO projections. 2-D mediolateral oblique (MLO) and craniocaudad (CC) views of both breasts were obtained. CAD: Full Field Digital Mammography with Computer Added Detection was performed. COMPARISON: Comparison is made with prior study dated May 11, 2023 and April 29, 2021. FINDINGS: Breast Composition: The breasts are heterogeneously dense, which may obscure small masses. There are no dominant masses or suspicious calcifications. No other significant abnormalities are identified. There has been no significant change since the prior study. BI/SCRN MAMM (CAD)W/YONI BILAT IMPRESSION: Stable bilateral screening mammogram. Yearly follow-up mammogram recommended. (A) ASSESSMENT CATEGORY: BIRADS Category 1: Negative. A letter regarding these results will be sent to the patient by the facility within 30 days. Approximately 10% of breast cancers are not detected by mammography. A normal mammogram should not delay biopsy of a clinically suspicious abnormality. [id number] Electronically Signed: Jeramy Lobo MD at 13:23 EST ,
== END | disposition home or self-care (01) ==
LOC: OPBI 12:46
PROVIDERS: PCP Family Medicine; Referring Provider Physician Assistant; Visit Provider Physician Assistant
DX: Z12.31 Encounter for screening mammogram for malignant neoplasm of breast (principal); Z80.3 Family history of malignant neoplasm of breast
CPT/HCPCS: 77063; 77067